=== PATIENT | male | born 1990 | race Asian ===

== ENCOUNTER 2019-04-12 18:35 | Emergency (ER) | payer OTHER ==
[~2019-04-12] VITALS: Ht 162.6 cm; Wt 81.6 kg
[2019-04-12 19:30] VITALS: BP 132/76
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
[2019-04-12] MEDS ORDERED: DICL50TA4 PO (20:22)
[2019-04-12] MEDS ORDERED: ORPH100T PO (20:22)
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
== END 2019-04-12 20:55 | disposition home or self-care (01) ==
LOC: ER 18:35
DX: S16.1XXA Strain of muscle, fascia and tendon at neck level, initial encounter (principal); S29.012A Strain of muscle and tendon of back wall of thorax, initial encounter; S39.012A Strain of muscle, fascia and tendon of lower back, initial encounter; V43.52XA Car driver injured in collision with other type car in traffic accident, initial encounter; Y93.89 Activity, other specified; Y92.410 Unspecified street and highway as the place of occurrence of the external cause; Y99.8 Other external cause status
CPT/HCPCS: 72040; 72072; 72100; 99284